=== PATIENT | female | born 1965 | race Caucasian/White ===

== ENCOUNTER 2016-12-31 10:16 | Inpatient (IN) | payer BC ==
[~2016-12-31] VITALS: Ht 154.9 cm; Wt 126.4 kg
[2017-01-03] VITALS (9 sets, daily range): BP systolic 103–155; BP diastolic 63–683; PULSE 60–97; TEMP 98.1–98.3
[2017-01-03] MEDS ORDERED: ASPIRIN 32325 MG/TAB PO (06:26)
[2017-01-03] MEDS ORDERED: COZAAR 50MG50 MG/TAB PO (06:28)
[2017-01-03] MEDS ORDERED: SYNTHROID0.05 MG/TA PO (06:28)
[2017-01-03] MEDS ORDERED: GLUCOPHAGE500 MG/TAB PO (06:28)
[2017-01-03] MEDS ORDERED: PROTONIX 40MG T40 MG PO (06:29)
[2017-01-03] MEDS ORDERED: GAS-X ULTRA ST180 MG PO (06:29)
[2017-01-03] MEDS ORDERED: FOLIC ACID0.4 MG PO (06:32)
[2017-01-03] MEDS ORDERED: VITAMIN C500 MG PO (06:32)
[2017-01-03] MEDS ORDERED: FERROUS GL325 MG/TAB (06:32)
[2017-01-04 01:19] VITALS: BP 132/86; PULSE 104; TEMP 98.5
[2017-01-04 04:00] VITALS: BP 153/78; PULSE 96; TEMP 98.4
[2017-01-04 05:53] LABS: HEMATOCRIT 35.5 % (37.0-47.0); HEMOGLOBIN 11.3 g/dl (12.5-16.0)
[2017-01-04 07:36] VITALS: BP 181/91; PULSE 100; TEMP 98.3
[2017-01-04 10:10] VITALS: BP 135/74
[2017-01-04 12:02] VITALS: BP 161/83; PULSE 98; TEMP 98.2
== END 2017-01-04 15:30 | disposition home or self-care (01) | DRG 470 ==
LOC: JCC 01-03 05:23
PROVIDERS: Orthopaedic Surgery
PROC: 0SRD0J9 Replacement of Left Knee Joint with Synthetic Substitute, Cemented, Open Approach (ICD-10-PCS; principal; 2017-01-03 07:30)
DX: M17.12 Unilateral primary osteoarthritis, left knee (principal); Z68.43 Body mass index [BMI] 50.0-59.9, adult; E66.01 Morbid (severe) obesity due to excess calories
CPT/HCPCS: A9284; C1713; C1776; J0690; J1100; J2250; J2270; J2704; J7120

== ENCOUNTER → 2019-01-25 | Outpatient (CLI) | payer BC ==
[~2019-01-25] MED LIST: ASPIRIN 32325 MG/TAB PO; COZAAR 50MG50 MG/TAB PO; FERROUS GL325 MG/TAB; FOLIC ACID0.4 MG PO; GAS-X ULTRA ST180 MG PO; GLUCOPHAGE500 MG/TAB PO; PROTONIX 40MG T40 MG PO; SYNTHROID0.05 MG/TA PO; VITAMIN C500 MG PO
== END ==
LOC: COL.RAD 09:29
DX: M25.552 Pain in left hip (principal)
CPT/HCPCS: J3301; Q9967

== ENCOUNTER → 2021-01-21 | Outpatient (CLI) | payer BC | LOC: COL.RAD 12:02 | DX: M25.532 Pain in left wrist (principal) | CPT/HCPCS: J3301; Q9967 ==

== ENCOUNTER → 2021-10-15 | Outpatient (CLI) | payer BC | LOC: COL.RAD 09:00 | DX: M79.645 Pain in left finger(s) (principal); M79.642 Pain in left hand | CPT/HCPCS: J3301; Q9967 ==